=== PATIENT | male | born 1960 | race Caucasian/White ===

== ENCOUNTER 2017-06-28 19:39 | Emergency (ER) | payer OTHER ==
[~2017-06-28] VITALS: Ht 182.9 cm; Wt 103.1 kg
[2017-06-28] MEDS ORDERED: ASPI1TAB30 PO (20:10)
[2017-06-28] MEDS ORDERED: ONDANSETRON 2MG/ML, 2ML IVPush ONE (21:30)
[2017-06-28] MEDS ORDERED: MORPHINE SULFATE 4 MG/ML, 1ML IVPush PRN (21:30)
[2017-06-28] MEDS ORDERED: SODIUM CHLORIDE FLUSH 10ML SYR IVF ONE (21:30)
[2017-06-28] MEDS ORDERED: SODIUM CHLORIDE 0.9% 1,000ML IVBOLUS ONE (21:30)
[2017-06-28] MEDS ORDERED: MORPHINE SULFATE 4 MG/ML, 1ML ONE (21:40)
[2017-06-28] MEDS ORDERED: ONDANSETRON 2MG/ML, 2ML ONE (21:40)
[2017-06-28 21:41] LABS: HEMATOCRIT 41.9 % (39.2-51.8); HEMOGLOBIN 14.2 g/dL (13.7-18.0); WHITE BLOOD COUNT 8.2 x10^3/uL (3.4-10)
[2017-06-28 21:53] LABS: ASPARTATE AMINO TRANSFERASE 16 U/L (15-37); BLOOD UREA NITROGEN 16 mg/dL (7-18)
[2017-06-28 23:09] VITALS: BP 142/70
== END 2017-06-28 23:23 | disposition home or self-care (01) ==
LOC: ED 23:17
DX: K80.20 Calculus of gallbladder without cholecystitis without obstruction (principal)
CPT/HCPCS: 36415; 76700; 80053; 81003; 83690; 85025; 96361; 96374; 96375; 99285; J2405; J7030

== ENCOUNTER → 2017-07-10 | Outpatient (CLI) | payer OTHER ==
[~2017-07-10] MED LIST: ASPI1TAB31 PO; GABA300C10 PO
== END | disposition home or self-care (01) ==
LOC: STAR 12:19
PROVIDERS: ATTEND Surgery
DX: Z02.9 Encounter for administrative examinations, unspecified (principal)

== ENCOUNTER → 2017-07-14 | Outpatient (CLI) | payer OTHER ==
[~2017-07-14] VITALS: Ht 182.9 cm; Wt 100.0 kg
[~2017-07-14] MED LIST changes: +BUPIVACAINE/PF 0.5% ONE; +EPINEPHRINE 1 MG/ML, 1ML ONE; +LACTATED RINGERS 1,000 ML IV SCH
[2017-07-14 07:20] VITALS: BP 125/86
[2017-07-14 07:44] LABS: DAU SCREEN DISCLAIMER
== END | disposition home or self-care (01) ==
LOC: OUT 06:57 → SDC 08:00 → EDSTATUS 09:00
PROVIDERS: ATTEND Surgery
DX: Z01.812 Encounter for preprocedural laboratory examination (principal); K80.10 Calculus of gallbladder with chronic cholecystitis without obstruction
CPT/HCPCS: 80307; J7120; J0171; J3490; G0479

== ENCOUNTER 2017-07-28 07:33 | Day surgery (SDC) | payer OTHER ==
[~2017-07-28] VITALS: Ht 177.8 cm; Wt 102.0 kg
[~2017-07-28 07:33] MED LIST changes: -BUPIVACAINE/PF 0.5% ONE; -EPINEPHRINE 1 MG/ML, 1ML ONE; -LACTATED RINGERS 1,000 ML IV SCH
[2017-07-28] MEDS ORDERED: LACTATED RINGERS 1,000 ML IV SCH (07:51)
[2017-07-28 07:52] VITALS: BP 127/94
[2017-07-28] MEDS ORDERED: HYDROmorphone 1 MG/ML, 1ML ONE (07:53)
[2017-07-28] MEDS ORDERED: MIDAZOLAM 1 MG/ML, 2ML ONE (07:53)
[2017-07-28] MEDS ORDERED: FENTANYL PF 100 MCG/2ML ONE ×3 (07:53→11:06)
[2017-07-28] MEDS ORDERED: SUCCINYLCHOLINE 20 MG/ML, 10ML ONE (07:54)
[2017-07-28] MEDS ORDERED: CEFAZOLIN 1,000 MG ONE (07:54)
[2017-07-28] MEDS ORDERED: DEXAMETHASONE 4 MG/ML, 1ML ONE ×2 (07:54→09:49)
[2017-07-28] MEDS ORDERED: GLYCOPYRROLATE 0.2MG/1ML, 5ML ONE (07:54)
[2017-07-28] MEDS ORDERED: ONDANSETRON 2MG/ML, 2ML ONE (07:54)
[2017-07-28] MEDS ORDERED: PROPOFOL 10 MG/ML, 20ML ONE (07:54)
[2017-07-28] MEDS ORDERED: NEOSTIGMINE 1 MG/ML, 10ML ONE (07:54)
[2017-07-28 08:12] VITALS: BP 127/94
[2017-07-28 08:27] LABS: DAU SCREEN DISCLAIMER
[2017-07-28] MEDS ORDERED: BUPIVACAINE/PF 0.5% ONE (09:25)
[2017-07-28] MEDS ORDERED: ROCURONIUM 10 MG/ML ONE (09:49)
[2017-07-28] MEDS ORDERED: PHENYLEPHRINE 10 MG/ML ONE (09:49)
[2017-07-28] MEDS ORDERED: EPHEDRINE 50 MG/ML, 1ML ONE (09:49)
[2017-07-28] MEDS ORDERED: VASOPRESSIN 20 UNIT/ML, 1ML ONE (10:07)
[2017-07-28] MEDS ORDERED: LIDOCAINE-MPF 2% ,5ML ONE (10:30)
[2017-07-28] MEDS ORDERED: HYDROmorphone 2 MG/ML, 1ML IVPush PRN (11:00)
[2017-07-28] MEDS ORDERED: ONDANSETRON 2MG/ML, 2ML IVPush PRN ×2 (11:00→11:30)
[2017-07-28] MEDS ORDERED: KETOROLAC 30 MG/1 ML IVPush PRN (11:00)
[2017-07-28] MEDS ORDERED: OXYcodone 5 MG/5 ML ORAL.SOL UDC PO PRN ×2 (11:00→11:30)
[2017-07-28] MEDS ORDERED: OXYcodone 5 MG/5 ML ORAL.SOL UDC ONE (11:06)
[2017-07-28] MEDS ORDERED: ACETAMINOPHEN 325 MG TABLET ONE (11:06)
[2017-07-28] MEDS ORDERED: KETOROLAC 30 MG/1 ML ONE (11:26)
[2017-07-28] MEDS ORDERED: HYDROcodone/APAP 7.5-325MG/15ML UDC PO PRN (11:30)
[2017-07-28] MEDS ORDERED: PROMETHAZINE 25 MG/ML, 1ML IV PRN (11:30)
[2017-07-28] MEDS ORDERED: LABETALOL 5MG/ML, 20ML IV PRN (11:30)
[2017-07-28] MEDS ORDERED: ACETAMINOPHEN 325 MG TABLET PO PRN (11:30)
[2017-07-28] MEDS ORDERED: FENTANYL PF 100 MCG/2ML IV PRN (11:30)
[2017-07-28] MEDS ORDERED: HYDROmorphone 1 MG/ML, 1ML IV PRN (11:30)
== END 2017-07-28 13:18 ==
LOC: OUT 07:33
PROVIDERS: ATTEND Surgery
DX: K80.12 Calculus of gallbladder with acute and chronic cholecystitis without obstruction (principal); F17.210 Nicotine dependence, cigarettes, uncomplicated; M10.9 Gout, unspecified
CPT/HCPCS: 47562; 80307; 88304; J0330; J0690; J1100; J1170; J1885; J2250; J2370; J2405; J2704; J2710; J3010; J3490; J7120; G0479